=== PATIENT | male | born 1950 | race Caucasian/White ===

== ENCOUNTER 2019-09-15 22:34 | Inpatient (IN) | payer MEDICARE, SELFPAY ==
--- NOTE | ~2019-09-15 | XR_ITS ---
EXAMINATION: XR hip LT min 2V EXAM DATE: 09/17/2019 16:19 INDICATION: Left hip replacement. TECHNIQUE: Frontal and lateral projections of the left hip. Comparison is made to prior examination from 09/16/2019. FINDINGS: Status post total left hip arthroplasty, hardware in expected position. There are arterial calcifications, arteriosclerosis. Some subcutaneous gas. IMPRESSION: Status post left hip replacement. Reviewed, dictated and finalized at location A.
--- NOTE | ~2019-09-15 | XR_ITS ---
EXAMINATION: XR chest 1V portable DATE: 09/16/2019 00:36 INDICATION: Syncope. Smoker. Left femoral fracture post fall TECHNIQUE: frontal view of the chest was obtained. COMPARISON: None FINDINGS: Hyperexpansion of lungs suggestive but not diagnostic of COPD. No focal airspace opacities, pulmonary edema, pleural effusion or pneumothorax. The cardiomediastinal silhouette is normal. There is callus formation surrounding several subacute lower left rib fractures. A few older healed right rib fractu res. There is also calcification along an ununited healing minimally displaced lateral left clavicle fracture. IMPRESSION: 1. Appearance suggestive but not diagnostic of COPD. 2. Subacute appearing healing left clavicle and several left rib fractures. Reviewed, dictated and finalized at location A.
--- NOTE | ~2019-09-15 | CT_ITS ---
EXAMINATION: CT brain wo con DATE: 09/16/2019 00:41 INDICATION: Syncope. Fall. TECHNIQUE: Computed tomography (CT) of the head was performed without intravenous contrast. The mA wa s adjusted according to patient size. Iterative reconstruction technique was employed. The dose-lengt h product was 681.00 mGy-cm. COMPARISON: None FINDINGS: There are scattered areas of low attenuation in the cerebral white matter. There is an old lacunar infarct in left lentiform nucleus. There is no intracranial hemorrhage, acute infarction, or abnormal intracranial mass lesion. The ventricles are normal in size. The orbits are normal. There is mild mucosal thickening in the paranasal sinuses. There is thickening and sclerosis of the encinas of the right maxillary sinus, consistent with chronic sinusitis. The mastoid air cells are normal. IMPRESSION: 1. Moderate nonspecific cerebral white matter disease, which likely represents chronic small vessel i schemic disease. 2. Old lacunar infarct in left lentiform nucleus. Reviewed, dictated and finalized at location B. IMPRESSION: 1. Moderate nonspecific cerebral white matter disease, which likely represents chronic small vessel ischemic disease. 2. Old lacunar infarct in left lentiform nucleus.
--- NOTE | ~2019-09-15 | XR_ITS ---
EXAMINATION: XR femur LT min 2V DATE: 09/16/2019 00:35 INDICATION: Left leg pain post fall TECHNIQUE: Overlapping proximal and distal, AP and lateral views of the left femur were obtained. COMPARISON: None FINDINGS: Basocervical fracture of the proximal left femur with 3 cm proximal migration resulting in varus angu lation. There is also one cortical width posterior displacement. No other fractures identified. Consuelo l alignment with mild osteoarthritis at the left hip. Normal alignment with moderate medial and later al compartment predominant tricompartmental osteoarthritis at the left knee. No left knee joint effus ion. Extensive atherosclerotic calcifications throughout the left iliac and femoral arteries. IMPRESSION: 3 cm proximally migration of a basicervical fracture of the proximal left femur. Reviewed, dictated and finalized at location A. IMPRESSION: 3 cm proximally migration of a basicervical fracture of the proximal left femur .
[2019-09-15 22:37] VITALS: BP 108/70; PULSE 94; RESP 20; TEMP 37.1; O2SAT 97
--- NOTE | 2019-09-15 23:25 | ECG_ITS ---
Measurements Intervals [place] Rate: 91 P: -35 ME: 126 QRS: -16 QRSD: 81 T: 135 QT: 335 QTc: 412 Interpretive Statements SINUS OR ECTOPIC ATRIAL RHYTHM ATRIAL PREMATURE COMPLEX LOW QRS VOLTAGE IN LIMB LEADS BASELINE ARTIFACT- I, II, III, AVR, AVL, AVF BORDERLINE ECG Electronically Signed On 09-16-2019 7:04:57 CDT by Morris Echevarria D.O.
--- NOTE | 2019-09-15 23:26 | ED.WEAKNESS ---
HPI - Weakness General Chief complaint: Weakness Stated complaint: FALL HIP PAIN Time Seen by Provider: 09/15/19 22:47 History of Present Illness HPI Narrative: Patient presents to the ED for weakness and left leg pain. He said he passed out a couple nights ago and hurt his left leg and has not been able to walk on it since. He smells of stool and urine. He says he drinks regularly. His voice is slightly muffled. He denies chest pain belly pain back pain. Complaint: generalized weakness Onset (ago): day(s) Duration: constant Location: generalized Severity scale (1-10): 9 Related Data Allergies Allergy/AdvReac Type Severity Reaction Status Date / Time No Known Allergies Allergy Verified 09/16/19 00:40 Review of Systems Review of Systems: Narrative: CONSTITUTIONAL: Denies fever, chills, or sweats. EYES: Denies visual changes, redness, or discharge. ENT: Denies rhinorrhea, congestion, sore throat, or otalgia. CARDIOVASCULAR: Denies chest pain, palpitations, or edema. RESPIRATORY: Denies cough or dyspnea. GASTROINTESTINAL: Denies abdominal pain, nausea, vomiting, or diarrhea. GENITOURINARY: Denies dysuria or hematuria. SKIN: Denies rash or itching. MUSCULOSKELETAL: Denies back pain, but has left leg and hip pain NEUROLOGIC: Denies headache, numbness, or weakness. All systems reviewed & are unremarkable except as noted in HPI and below PMFSH Past Medical History Medical History Alcoholic Syncope Social History Social History (Updated 09/15/19 @ 23:37 by Ana Rosa Messer MD) Smoking status: Current every day smoker Alcohol intake: current Exam Narrative: Exam Narrative: GENERAL: Foul-smelling disheveled elderly man, laying on his right side.. HEAD: Normocephalic, atraumatic. EYES: PERRLA and EOMI. ENT: Nares clear, no rhinorrhea or epistaxis. Mucous membranes moist. NECK: Supple. CHEST: Clear to auscultation. No respiratory distress. HEART: Regular rate and rhythm. No murmur heard. Normal peripheral pulses. ABDOMEN: Soft, nontender, nondistended, normal active bowel sounds. EXTREMITIES: No edema. Bruises on both arms and legs. SKIN: Warm, dry, no rash. NEURO: No focal deficits. Alert and oriented x3. Slurred speech PSYCH: Poor eye contact. Course Consultations Consultation #1: Call the orthopedic on-call Dr. Larson accepts the consult for the left hip fracture Date: 09/16/19 Time: 01:21 Consultation #2: Call Dr. Burrell for admission for the left hip fracture. Date: 09/16/19 Time: 02:04 Consultation #3: Dr. Burrell accepts the patient. Date: 09/16/19 Time: 03:05 Vital Signs Vital signs: Vital Signs Temperature 98.7 F 09/15/19 22:37 Pulse Rate 94 09/15/19 22:37 Respiratory Rate 20 09/15/19 22:37 Blood Pressure 108/70 09/15/19 22:37 Pulse Oximetry 97 09/15/19 22:37 Temperature 98.7 F 09/15/19 22:37 Pulse Rate 91 09/16/19 02:19 Respiratory Rate 16 09/16/19 02:19 Blood Pressure 123/84 09/16/19 02:19 Pulse Oximetry 100 09/16/19 02:19 MDM - Weakness Medical Records Attestation: I reviewed the patient's medical records. Lab Data Result diagrams: 09/15/19 23:34 09/15/19 23:35 Labs: Lab Results 09/15/19 09/15/19 09/15/19 Range/Units 23:34 23:34 23:35 WBC 14.1 H (4.5-10.0) K/mm3 RBC 4.56 L (4.6-6.20) M/mm3 Hgb 15.8 (14.0-18.0) g/dL Hct 43.3 (42.0-52.0) % MCV 95.0 (80-100) fl MCH 34.6 H (26-34) pg MCHC 36.5 H (32-36) g/dl RDW 13.2 (11.5-14.5) % Plt Count 263 (150-375) k/mm3 MPV 8.1 (7.4-10.4) fl Immature Gran % (Auto) 0.5 (0-0.5) % Neut % (Auto) 81.7 H (45.5-73.1) % Lymph % (Auto) 6.3 L (18.3-44.2) % [place] % (Auto) 11.3 H (2.6-8.5) % Eos % (Auto) 0.1 (0-4.4) % Baso % (Auto) 0.1 L (0.2-1.2) % Lymph # (Auto) 0.89 L (0.9-3.2) K/mm3 [place] # (Auto) 1.6 H (0.1-0.6) K/mm3 Eos # (Au
[2019-09-15 23:41] LABS: Basophils Percent Auto 0.1 % (0.2-1.2); Eosinophils Percent Auto 0.1 % (0-4.4); Hematocrit 43.3 % (42.0-52.0); Hemoglobin 15.8 g/dL (14.0-18.0); Immature Granulocyte Absolute 0.07 K/mm3 (0.00-0.031); Immature Granulocyte Percent A 0.5 % (0-0.5); Lymphocytes Absolute Auto 0.89 K/mm3 (0.9-3.2); Lymphocytes Percent Auto 6.3 % (18.3-44.2); Mean Corpuscular HGB Conc 36.5 g/dl (32-36); Mean Corpuscular Hemoglobin 34.6 pg (26-34); Mean Platelet Volume 8.1 fl (7.4-10.4); Monocytes Absolute Auto 1.6 K/mm3 (0.1-0.6); Monocytes Percent Auto 11.3 % (2.6-8.5); Neutrophils Absolute Auto 11.5 K/mm3 (1.3-6.7); Neutrophils Percent Auto 81.7 % (45.5-73.1); Platelet Count Result 263 k/mm3 (150-375); Red Blood Count 4.56 M/mm3 (4.6-6.20); Red Cell Distribution Width 13.2 % (11.5-14.5); White Blood Count 14.1 K/mm3 (4.5-10.0)
[2019-09-15 23:45] VITALS: BP 115/84; PULSE 78; RESP 20; O2SAT 99
[2019-09-15 23:53] LABS: Alanine Aminotransferase 45 U/L (4-50); Albumin Level 3.9 g/dL (3.5-5.1); Alkaline Phosphatase 86 U/L (38-126); Anion Gap 11 mmol/L (8-16); Aspartate Amino Transferase 85 U/L (17-59); Bilirubin,Total 1.7 mg/dL (0.2-1.3); Blood Urea Nitrogen 41 mg/dL (9-20); Carbon Dioxide 24 mmol/L (22-30); Chloride 90 mmol/L (98-107); Estimated CRCL calculation 42 ml/min; Estimated Glomerular Filt Rate 40; Glucose 116 mg/dL (75-110); Potassium 4.3 mmol/L (3.4-5.0); Sodium 125 mmol/L (137-145)
[2019-09-15 23:56] LABS: Ethanol < 10 mg/dL (<10)
[2019-09-16] VITALS (11 sets, daily range): BP systolic 112–138; BP diastolic 63–90; PULSE 74–91; RESP 16–22; TEMP 36.2–37; O2SAT 92–100; BMI 23.1; BMI 23.0
[2019-09-16 00:24] LABS: Add Urine Microscopic? YES; Appearance Urine Cloudy (Clear); Bacteria Urine Trace /hpf; Bilirubin Urine Negative (Negative); Blood Urine 1+ (Negative); Color Urine Amber (Yellow); Glucose Urine UA Negative (Negative); Hyaline Casts Urine 15-19 /lpf; Ketones Urine Trace mg/dL (Negative); Leukocyte Esterase Ur 2+ LEU/UL (Negative); Mucus Urine Heavy /lpf; Nitrate Urine Positive (Negative); Protein Urine 1+ mg/dL (Negative); RBC Urine 0-2 /hpf (0-2); Specific Grav Ur 1.019 (1.001-1.035); Squamous Epithelial Cell Urine Rare /hpf (Few); WBC Urine 21-30 /hpf
[2019-09-16 00:40] LABS: Amphetamine Screen Urine Negative (Negative); Barbiturate Screen Urine Negative (Negative); Benzodiazepines Screen Urine Negative (Negative); Cannabinoid Screen Urine Negative (Negative); Cocaine Screen Urine Negative (Negative); Methadone Screen Urine Negative (Negative); Opiate Screen Urine Negative (Negative); Phencyclidine Screen Urine Negative (Negative)
[2019-09-16 02:30] LABS: Creatine Kinase 1417 U/L (55-170)
[2019-09-16] MEDS: SODIUM CHLORIDE 0.9% IV 1,000 ML 999 ML IV CONT (02:30)
[2019-09-16] MEDS: SODIUM CHLORIDE 0.9% IV 1,000 ML 125 ML IV CONT ×2 (07:02→19:11)
--- NOTE | 2019-09-16 07:53 | PC.NURSE ---
Spoke with ESTEBAN Pastrana. about diet order. She says to keep pt NPO untill Ortho sees him.
[2019-09-16] MEDS: MORPHINE SULFATE 4 MG/ML INJ IV PUSH ×2 (09:06→20:58)
--- NOTE | 2019-09-16 12:04 | PM.IMHP ---
H&P: HPI History of Present Illness Date/Time: 09/16/19 12:04 Chief complaint: hip fracture and rhabdomylosis Narrative: Date of admission: 09/15/2019 Date of service: 09/16/2019 Carmelo Valdivia is a 69 year old male smoker with a history of hypertension, hyponatremia, and chronic alcohol abuse who presented to the emergency department on 09/15/2019 with complaints of left hip and leg pain. On , 09/12/2019, he was going to the bathroom when he fell onto the bathroom floor and seemed to have injured his leg at that time. He could not stand up, and therefore he crawled to his bed and collapsed on the floor again. He reports drinking approximately 6 beers on night. He believes that he fell on his buttocks. He denies hitting his head or losing consciousness. For the next 2-3 days he crawled back and forth from his bed to his kitchen to take his medications and eat and pulled himself up into a chair. At one point, he was unable to pull himself up into his bed, so he simply laid on the floor and stayed there for an unknown amount of time. His friends called to check on him because they had not seen him in a bit and then sent an ambulance to his house. At this time, he is complaining of left leg pain which is 9/10 in severity. He tells me he has not drank any alcohol in 4 days since his fall. He denies ever having symptoms of alcohol withdrawal. He does not believe that alcohol use is a problem for him. He has had decreased urine output over the past few days but is unsure whether his urine was darker or not. He tells me he has had several falls in the past, but not causing any injury such as this. Review of Systems Review of Systems: Narrative: A 12 point review of systems was reviewed with pertinent positives and negatives as per HPI and below. He denies headache, confusion, sweats, fever, chills, nausea, vomiting, or diarrhea. His last bowel movement was 3 days ago. He denies dysphagia. He endorses a chronic dry smoker's cough. He feels a bit agitated and anxious about being in the hospital but denies depression. He denies weakness, dizziness, or lightheadedness. No weight loss. He has numbness and tingling in both of his feet. [facility] Past Medical History Medical History (Updated 09/16/19 @ 15:34 by Rosario Virgen PA-C) Alcohol abuse Hypertension Hyponatremia Tobacco abuse Family History Family History Mother Heart disease Father Dementia Other Unknown family medical history Social History Social History (Updated 09/16/19 @ 12:23 by Rosario Virgen PA-C) Social History: Mr. Valdivia lives at home alone. He is independent with his ADLs but does not drive because his license has been revoked. He is . He has no children. 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.He designates his sister Shantelle as his surrogate decision maker and he would like to be a full code Smoking packs per day: 1.5 Smoking cigarettes per day: 30.0 Years smoked: 53 Smoking pack-years: 79.50 Smoking status: Current every day smoker Tobacco type: cigarettes Alcohol intake: current Drinks per week: 18 Substance use: current Substance use type: marijuana Last use: 3 weeks ago Living arrangements: alone Occupation/Education: retired Gender identity (if verbalized by the patient): Male Spiritual care concerns: No Meds Home Medications and Allergies Home Medications Medication Instructions Recorded Confirmed Type amlodipine 5 mg PO DAILY 09/16/19 09/16/19 History lisinopril 10 mg PO DAILY 09/16/19 09/16/19 History sodium chloride 1 g PO TID 09/16/19 09/16/19 History Allergies Allergy/AdvReac Type Severity Reaction Status Date / Time No Known Allergies Allergy Verified 09/16/19 00:40 Vital Signs Vital Signs - 24 hr 09/15/19 22:37 09/15/19 23:45 09/16/19 00:00 Temperature 98.7 F Puls
[2019-09-16 13:02] LABS: Basophils Percent Auto 0.1 % (0.2-1.2); Hematocrit 38.3 % (42.0-52.0); Immature Granulocyte Absolute 0.04 K/mm3 (0.00-0.031); Immature Granulocyte Percent A 0.4 % (0-0.5); Lymphocytes Absolute Auto 1.03 K/mm3 (0.9-3.2); Lymphocytes Percent Auto 9.5 % (18.3-44.2); Mean Corpuscular HGB Conc 36.6 g/dl (32-36); Mean Corpuscular Hemoglobin 34.7 pg (26-34); Mean Corpuscular Volume 94.8 fl (80-100); Mean Platelet Volume 8.1 fl (7.4-10.4); Monocytes Absolute Auto 1.3 K/mm3 (0.1-0.6); Monocytes Percent Auto 12.4 % (2.6-8.5); Neutrophils Absolute Auto 8.4 K/mm3 (1.3-6.7); Neutrophils Percent Auto 77.6 % (45.5-73.1); Platelet Count Result 240 k/mm3 (150-375); Red Blood Count 4.04 M/mm3 (4.6-6.20); Red Cell Distribution Width 13.1 % (11.5-14.5); White Blood Count 10.8 K/mm3 (4.5-10.0)
[2019-09-16 13:18] LABS: Alanine Aminotransferase 34 U/L (4-50); Alkaline Phosphatase 68 U/L (38-126); Anion Gap 6 mmol/L (8-16); Aspartate Amino Transferase 58 U/L (17-59); Bilirubin,Total 1.2 mg/dL (0.2-1.3); Blood Urea Nitrogen 29 mg/dL (9-20); Carbon Dioxide 23 mmol/L (22-30); Chloride 98 mmol/L (98-107); Creatine Kinase 838 U/L (55-170); Estimated CRCL calculation 96 ml/min; Estimated Glomerular Filt Rate > 60; Glucose 98 mg/dL (75-110); Potassium 3.7 mmol/L (3.4-5.0); Sodium 127 mmol/L (137-145)
--- NOTE | 2019-09-16 17:43 | PM.CNOR ---
Assessment and Plan Assessment and plan (1) Closed fracture of left hip: Qualifiers: Encounter type: initial encounter Qualified Code(s): S72.002A - Fracture of unspecified part of neck of left femur, initial encounter for closed fracture Code(s): S72.002A - Fracture of unspecified part of neck of left femur, initial encounter for closed fracture Status: Acute Assessment and Plan: Displaced femoral neck fracture. Will benefit from bipolar hemiarthroplasty. Significant wrist due to multiple medical comorbidities and alcohol abuse. Risks, benefits, and alternatives reviewed with the patient. Consents to proceed with bipolar hemiarthroplasty of the left hip. (2) Alcohol abuse: Code(s): F10.10 - Alcohol abuse, uncomplicated Status: Acute History of Present Illness HPI Consult date: 09/16/19 Chief complaint: hip fracture and rhabdomylosis Narrative: Patient complains of acute hip pain. Fell from standing height. Extended. Down before being brought to the emergency room for definitive management. Denies previous hip pain. Fairly comfortable at rest. No numbness, tingling, or other associated symptoms. Severe chronic alcoholism. Review of Systems Review of Systems: Narrative: Denies loss of consciousness. All systems reviewed & are unremarkable except as noted in HPI and below PMFSH Past Medical History Medical History Alcohol abuse Hypertension Hyponatremia Tobacco abuse Family History Family History Mother Heart disease Father Dementia Other Unknown family medical history Social History Social History Social History: Mr. Valdivia lives at home alone. He is independent with his ADLs but does not drive because his license has been revoked. He is . He has no children. 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.He designates his sister Shantelle as his surrogate decision maker and he would like to be a full code Smoking packs per day: 1.5 Smoking cigarettes per day: 30.0 Years smoked: 53 Smoking pack-years: 79.50 Smoking status: Current every day smoker Tobacco type: cigarettes Alcohol intake: current Drinks per week: 18 Substance use: current Substance use type: marijuana Last use: 3 weeks ago Living arrangements: alone Occupation/Education: retired Gender identity (if verbalized by the patient): Male Spiritual care concerns: No Meds Home Medications and Allergies Home Medications Medication Instructions Recorded Confirmed Type amlodipine 5 mg PO DAILY 09/16/19 09/16/19 History lisinopril 10 mg PO DAILY 09/16/19 09/16/19 History sodium chloride 1 g PO TID 09/16/19 09/16/19 History Allergies Allergy/AdvReac Type Severity Reaction Status Date / Time No Known Allergies Allergy Verified 09/16/19 00:40 Vital Signs Vital Signs - 24 hr 09/15/19 22:37 09/15/19 23:45 09/16/19 00:00 Temperature 37.1 C Pulse Rate 94 78 86 Respiratory Rate 20 20 21 H Blood Pressure 108/70 115/84 130/63 Pulse Oximetry 97 99 99 09/16/19 00:41 09/16/19 01:29 09/16/19 02:19 Temperature Pulse Rate 82 74 91 Respiratory Rate 18 22 H 16 Blood Pressure 112/70 115/90 123/84 Pulse Oximetry 98 100 100 09/16/19 03:45 09/16/19 03:55 09/16/19 04:00 Temperature 36.9 C Pulse Rate 74 79 79 Respiratory Rate 20 20 20 Blood Pressure 129/64 119/70 Pulse Oximetry 99 100 100 09/16/19 06:00 09/16/19 14:00 09/16/19 16:00 Temperature 36.2 C L 36.9 C Pulse Rate 90 91 Respiratory Rate 16 20 Blood Pressure 125/76 123/85 123/85 Pulse Oximetry 100 92 Exam Narrative: Exam Narrative: Lower extremity shortened and externally rotated. Const: General: no acute distress Eyes: General: appearance normal, both eyes and all related str
[2019-09-16] MEDS: THIAMINE HCL 100 MG TABLET PO (17:53)
[2019-09-16] MEDS: FOLIC ACID 1 MG TABLET PO (17:53)
[2019-09-16] MEDS: FAMOTIDINE 20 MG/2 ML VIAL IV PUSH (20:44)
[2019-09-17] VITALS (12 sets, daily range): BP systolic 94–181; BP diastolic 48–90; PULSE 60–84; RESP 16–20; TEMP 36.1–37; O2SAT 94–100
[2019-09-17] MEDS: SODIUM CHLORIDE 0.9% IV 1,000 ML 125 ML IV CONT ×2 (01:19→18:49)
[2019-09-17] MEDS: MORPHINE SULFATE 4 MG/ML INJ IV PUSH (05:29)
[2019-09-17 05:59] LABS: Basophils Percent Auto 0.2 % (0.2-1.2); Eosinophils Percent Auto 0.1 % (0-4.4); Hematocrit 37.1 % (42.0-52.0); Hemoglobin 13.4 g/dL (14.0-18.0); Immature Granulocyte Absolute 0.05 K/mm3 (0.00-0.031); Immature Granulocyte Percent A 0.6 % (0-0.5); Lymphocytes Absolute Auto 1.25 K/mm3 (0.9-3.2); Lymphocytes Percent Auto 14.6 % (18.3-44.2); Mean Corpuscular HGB Conc 36.1 g/dl (32-36); Mean Corpuscular Hemoglobin 34.1 pg (26-34); Mean Corpuscular Volume 94.4 fl (80-100); Mean Platelet Volume 7.8 fl (7.4-10.4); Monocytes Absolute Auto 1.2 K/mm3 (0.1-0.6); Monocytes Percent Auto 13.8 % (2.6-8.5); Neutrophils Absolute Auto 6.1 K/mm3 (1.3-6.7); Neutrophils Percent Auto 70.7 % (45.5-73.1); Platelet Count Result 237 k/mm3 (150-375); Red Blood Count 3.93 M/mm3 (4.6-6.20); Red Cell Distribution Width 12.8 % (11.5-14.5); White Blood Count 8.6 K/mm3 (4.5-10.0)
[2019-09-17 06:14] LABS: Alanine Aminotransferase 31 U/L (4-50); Albumin Level 2.9 g/dL (3.5-5.1); Alkaline Phosphatase 69 U/L (38-126); Anion Gap 8 mmol/L (8-16); Aspartate Amino Transferase 44 U/L (17-59); Blood Urea Nitrogen 22 mg/dL (9-20); Calcium 7.9 mg/dL (8.4-10.2); Carbon Dioxide 21 mmol/L (22-30); Chloride 101 mmol/L (98-107); Creatine Kinase 382 U/L (55-170); Estimated CRCL calculation 111 ml/min; Estimated Glomerular Filt Rate > 60; Glucose 88 mg/dL (75-110); Potassium 3.5 mmol/L (3.4-5.0); Sodium 130 mmol/L (137-145)
[2019-09-17 06:41] LABS: Vitamin D 25 Hydroxy 18.5 ng/mL
[2019-09-17 07:17] LABS: Folic Acid 14.6 ng/mL (2.76->20)
[2019-09-17] MEDS: FAMOTIDINE 20 MG/2 ML VIAL IV PUSH ×2 (08:15→20:43)
[2019-09-17] MEDS: SODIUM CHLORIDE 0.9% IV 1,000 ML 75 ML IV CONT ×2 (08:18→10:29)
[2019-09-17] MEDS: THIAMINE HCL 100 MG TABLET PO (08:21)
[2019-09-17] MEDS: FOLIC ACID 1 MG TABLET PO (08:21)
--- NOTE | 2019-09-17 10:01 | WPDHPUPDATE1 ---
History and Physical Update Update Date/Time: 09/17/19 10:01 History and Physical has been reviewed, including an updated exam of the patient. There are NO changes in the patient's condition. Risks, benefits, and alternatives have been discussed and questions answered. Patient agrees to proceed with procedure.
--- NOTE | 2019-09-17 12:05 | PC.NURSE ---
To OR per bed, IV 20 RAC.
--- NOTE | 2019-09-17 12:30 | WPDANESEPPF ---
Anes - Initial Pre Proc Eval Procedure: Operation Date: 09/17/19 14:00 Proposed Procedures p Bipolar Hemiarthroplasty Left Hip - James Larson MD Date/Time: 09/17/19 12:30 Surgeon: Braxton Antony PA-C Pre Op Diagnosis: hip fracture and rhabdomylosis Patient Data Age: 69 Gender: M Height: 6 ft Weight: 77.11 kg Last Vital Signs Temp 36.9 C 09/17/19 06:00 Pulse 73 09/17/19 06:00 Resp 20 09/17/19 06:00 BP 150/70 H 09/17/19 06:00 Pulse Ox 97 09/17/19 06:00 Allergies Allergy/AdvReac Type Severity Reaction Status Date / Time No Known Allergies Allergy Verified 09/16/19 00:40 Home Medications Medication Instructions Recorded Confirmed Type amlodipine 5 mg PO DAILY 09/16/19 09/16/19 History lisinopril 10 mg PO DAILY 09/16/19 09/16/19 History sodium chloride 1 g PO TID 09/16/19 09/16/19 History Laboratory Tests 09/16/19 09/16/19 09/16/19 12:51 12:51 19:04 WBC 10.8 K/mm3 H K/mm3 (4.5-10.0) RBC 4.04 M/mm3 L M/mm3 (4.6-6.20) Hgb 14.0 g/dL g/dL (14.0-18.0) Hct 38.3 % L % (42.0-52.0) MCV 94.8 fl fl (80-100) MCH 34.7 pg H pg (26-34) MCHC 36.6 g/dl H g/dl (32-36) RDW 13.1 % % (11.5-14.5) Plt Count 240 k/mm3 k/mm3 (150-375) MPV 8.1 fl fl (7.4-10.4) Immature Gran % (Auto) 0.4 % % (0-0.5) Neut % (Auto) 77.6 % H % (45.5-73.1) Lymph % (Auto) 9.5 % L % (18.3-44.2) [place] % (Auto) 12.4 % H % (2.6-8.5) Eos % (Auto) 0.0 % % (0-4.4) Baso % (Auto) 0.1 % L % (0.2-1.2) Lymph # (Auto) 1.03 K/mm3 K/mm3 (0.9-3.2) [place] # (Auto) 1.3 K/mm3 H K/mm3 (0.1-0.6) Eos # (Auto) 0.0 K/mm3 K/mm3 (0-0.3) Baso # (Auto) 0.0 K/mm3 K/mm3 (0.0-0.1) Abs Immat Gran (auto) 0.04 K/mm3 H K/mm3 (0.00-0.031) Absolute Neuts (auto) 8.4 K/mm3 H K/mm3 (1.3-6.7) Absolute Nucleated RBC 0.0 K/mm3 K/mm3 (0.0-0.012) Nucleated RBC % 0.0 % % (0.0-0.2) Sodium 127 mmol/L L mmol/L (137-145) Potassium 3.7 mmol/L mmol/L (3.4-5.0) Chloride 98 mmol/L mmol/L (98-107) Carbon Dioxide 23 mmol/L mmol/L (22-30) Anion Gap 6 mmol/L L mmol/L (8-16) BUN 29 mg/dL H D mg/dL (9-20) Creatinine 0.70 mg/dL mg/dL (0.7-1.3) Estim Creat Clear Calc 96 ml/min ml/min Estimated GFR > 60 (59 - ) Glucose 98 mg/dL mg/dL (75-110) Calcium 8.0 mg/dL L mg/dL (8.4-10.2) Total Bilirubin 1.2 mg/dL mg/dL (0.2-1.3) AST 58 U/L U/L (17-59) ALT 34 U/L U/L (4-50) Alkaline Phosphatase 68 U/L U/L (38-126) Total Creatine Kinase 838 U/L H U/L (55-170) Total Protein 6.0 g/dL L g/dL (6.3-8.2) Albumin 3.0 g/dL L g/dL (3.5-5.1) Vitamin B12 Vitamin D 25-Hydroxy Folate Blood Type O Positive Antibody Screen Negative 09/17/19 09/17/19 09/17/19 05:35 05:35 05:36 WBC 8.6 K/mm3 K/mm3 (4.5-10.0) RBC 3.93 M/mm3 L M/mm3 (4.6-6.20) Hgb 13.4 g/dL L g/dL (14.0-18.0) Hct 37.1 % L % (42.0-52.0) MCV 94.4 fl fl (80-100) MCH 34.1 pg H pg (26-34) MCHC 36.1 g/dl H g/dl (32-36) RDW 12.8 % % (11.5-14.5) Plt Count 237 k/mm3 k/mm3 (150-375) MPV 7.8 fl fl (7.4-10.4) Immature Gran % (Auto) 0.6 % H % (0-0.5) Neut % (Auto) 70.7 % % (45.5-73.1) Lymph % (Auto) 14.6 % L % (18.3-44.2) [place] % (Auto) 13.8 % H % (2.6-8.5) Eos % (Auto) 0.1 % % (0-4.4) Baso % (Auto) 0.2 % % (0.2-1.2) Lymph # (Auto) 1.25 K/mm3 K/mm3 (0.9-3.2) [place] # (Auto) 1.2 K/mm3 H K/mm3 (0
[2019-09-17] MEDS: LACTATED RINGERS 1,000 ML 30 ML IV CONT ×2 (12:36→15:48)
[2019-09-17] MEDS: ceFAZolin 2 GM/D5W 50 ML 2 GM/50 ML BAG IVPB (13:20)
--- NOTE | 2019-09-17 15:38 | P.OP_ITS ---
Procedure Note - Detailed Date of procedure: 09/17/19 Pre-op diagnosis: hip fracture and rhabdomylosis Displaced femoral neck fracture. Post-op diagnosis: same Procedure performed: Bipolar hemiarthroplasty. Implants: Bridget Accolade 2 hip stem. Size 7, 56 mm bipolar component, 28+4 mm metal head. Anesthesia: GETA Surgeon: James Larson MD Estimated blood loss (mL): 150 Drains: No Pathology: none sent Complications: None Condition: stable Disposition: PACU Findings: A general anesthetic was administered. The patient was carefully place d in the lateral decubitus position on the peg board positioner. An axillary roll was placed. The hip was prepped and draped in the usual sterile fashion. An anterolateral approach to the hip was performed. The anterior gluteus medius and vastus lateralis was split and retracted anteriorly. The capsule was opened. The labrum was preserved. The femoral neck cut was performed. The femoral head was removed and sized. The acetabular floor was cleared of debris and loose tissue. The femur was sequentially reamed and broached. Trial was assessed for leg length and stability. The real component was impacted into position, trialed again, and the final head and bipolar component were assembled. The hip was reduced after copious irrigation. The capsule was repaired, followed by the abductors to the trochanter. The wound was closed in layers with #2 and #1 vicryl, 2,0, and 2-0 running barbed suture. Adhesive tapes were placed on the skin, followed by a sterile gauze dressing. The patient was extubated and brought to the recovery room.
--- NOTE | 2019-09-17 16:57 | PC.NURSE ---
Returned from OR per bed. Report received from Angel.
--- NOTE | 2019-09-17 17:16 | PM.IMPN ---
Progress Note: A&P Assessment and Plan (1) Closed fracture of left hip: Qualifiers: Encounter type: initial encounter Qualified Code(s): S72.002A - Fracture of unspecified part of neck of left femur, initial encounter for closed fracture Code(s): S72.002A - Fracture of unspecified part of neck of left femur, initial encounter for closed fracture Status: Acute Assessment and Plan: He had a fall on 09/11 and reports he fell on his buttocks. X-ray shows basicervical fracture of the proximal left femur. Dr. Larson consulted and appreciate recommendations. POD0 left bipolar hemiarthroplasty per Dr. Larson. Vitamin D level 18.5; will initiate Vit D3 1000 units daily Post op care, pain management, PT/OT, DVT ppx per Ortho recommendations Monitor (2) Rhabdomyolysis: Qualifiers: Encounter type: initial encounter Rhabdomyolysis type: traumatic Qualified Code(s): T79.6XXA - Traumatic ischemia of muscle, initial encounter Code(s): M62.82 - Rhabdomyolysis Status: Acute Assessment and Plan: Patient had a fall and laid on the ground for an unknown amount of time. He did not lose consciousness or hit his head. Head CT showed no acute abnormalities. CK has improved again today Continue IV fluids. Continue to monitor labs and urine output. (3) Alcohol abuse: Code(s): F10.10 - Alcohol abuse, uncomplicated Status: Acute Assessment and Plan: He reports drinking approximately 8 beers per day. He denies ever having a history of alcohol withdrawal symptoms. His last drink was 4 days ago. He does not believe that alcohol use is a problem for him and he is not interested in reducing his alcohol intake. Initiate CIWA protocol. Continue thiamine and folic acid B12 and folate WNL (4) Hyponatremia: Code(s): E87.1 - Hypo-osmolality and hyponatremia Status: Acute Assessment and Plan: He reports chronic hyponatremia and is on 1 g sodium chloride t.i.d. per PCP. Likely due to heavy beer intake and poor nutritional intake. No prior labs are available for review to establish a baseline. Sodium is 130 today. Continue IV sodium chloride. Monitor sodium levels closely. (5) Renal insufficiency: Code(s): N28.9 - Disorder of kidney and ureter, unspecified Status: Resolved Assessment and Plan: Most likely secondary to rhabdo and is improving. At presentation, creatinine was 1.7 and has appeared to have resolved wtih Cr 0.60 today. Continue IV fluids Hold lisinopril. Plan to resume when clinically appropriate. Continue to monitor renal function closely and avoid nephrotoxic agents. (6) Hypertension: Qualifiers: Hypertension type: essential hypertension Qualified Code(s): I10 - Essential (primary) hypertension Code(s): I10 - Essential (primary) hypertension Status: Acute Assessment and Plan: Blood pressures have been elevated perioperatively this afternoon Continue amlodipine. Hold lisinopril given renal insufficiency. Monitor (7) COPD (chronic obstructive pulmonary disease): Qualifiers: COPD type: unspecified COPD Qualified Code(s): J44.9 - Chronic obstructive pulmonary disease, unspecified Code(s): J44.9 - Chronic obstructive pulmonary disease, unspecified Status: Suspected Assessment and Plan: CXR is consistent with COPD findings. He smokes 1.5 ppd. He complains of chronic dry cough. He is maintaining adequate oxygenation on room air. Continue p.r.n. albuterol He will benefit from outpatient PFT. (8) Tobacco abuse: Code(s): Z72.0 - Tobacco use Status:
[2019-09-17] MEDS: DOCUSATE SODIUM 100 MG CAPSULE PO (18:23)
[2019-09-18] VITALS: BP 101/71; PULSE 70; RESP 16; TEMP 37; O2SAT 99
[2019-09-18] MEDS: SODIUM CHLORIDE 0.9% IV 1,000 ML 125 ML IV CONT (01:04)
[2019-09-18 04:00] VITALS: BP 136/70; PULSE 61; RESP 18; TEMP 36.8; O2SAT 100
[2019-09-18 06:07] LABS: Basophils Percent Auto 0.2 % (0.2-1.2); Eosinophils Percent Auto 0.2 % (0-4.4); Hematocrit 36.8 % (42.0-52.0); Hemoglobin 13.1 g/dL (14.0-18.0); Immature Granulocyte Absolute 0.04 K/mm3 (0.00-0.031); Immature Granulocyte Percent A 0.4 % (0-0.5); Lymphocytes Absolute Auto 1.15 K/mm3 (0.9-3.2); Lymphocytes Percent Auto 10.8 % (18.3-44.2); Mean Corpuscular HGB Conc 35.6 g/dl (32-36); Mean Corpuscular Hemoglobin 34.7 pg (26-34); Mean Corpuscular Volume 97.4 fl (80-100); Mean Platelet Volume 8.2 fl (7.4-10.4); Monocytes Absolute Auto 1.5 K/mm3 (0.1-0.6); Monocytes Percent Auto 13.7 % (2.6-8.5); Neutrophils Absolute Auto 7.9 K/mm3 (1.3-6.7); Neutrophils Percent Auto 74.7 % (45.5-73.1); Platelet Count Result 242 k/mm3 (150-375); Red Blood Count 3.78 M/mm3 (4.6-6.20); White Blood Count 10.6 K/mm3 (4.5-10.0)
[2019-09-18 06:21] LABS: Anion Gap 9 mmol/L (8-16); Blood Urea Nitrogen 12 mg/dL (9-20); Calcium 7.7 mg/dL (8.4-10.2); Carbon Dioxide 26 mmol/L (22-30); Chloride 94 mmol/L (98-107); Estimated CRCL calculation 111 ml/min; Estimated Glomerular Filt Rate > 60; Glucose 92 mg/dL (75-110); Magnesium 1.8 mg/dL (1.6-2.3); Potassium 3.1 mmol/L (3.4-5.0); Sodium 129 mmol/L (137-145)
[2019-09-18 06:30] LABS: Creatine Kinase 389 U/L (55-170)
--- NOTE | 2019-09-18 08:19 | P.PNAN_ITS ---
Anes - Prog Note Post-Op Date/Time: 09/18/19 08:19 Cardiovascular status: normal Respiratory status: normal Airway patency: baseline Mental status: baseline Post-Op hydration status: normal Vital Signs: Last Vital Signs Temp 36.8 C 09/18/19 04:00 Pulse 61 09/18/19 04:00 Resp 18 09/18/19 04:00 BP 136/70 09/18/19 04:00 Pulse Ox 100 09/18/19 04:00 Pain Score (VAS): 0/10. Patient resting in bed at time of assessment, appears comfortable. I/O: Intake & Output 09/17/19 09/18/19 09/18/19 23:59 07:59 15:59 Intake Total 550 1300 Output Total 650 800 Balance -100 500 Laboratory Tests 09/18/19 05:28 09/18/19 05:28 09/18/19 09/18/19 05:28 05:28 WBC 10.6 H RBC 3.78 L Hgb 13.1 L Hct 36.8 L MCV 97.4 MCH 34.7 H MCHC 35.6 RDW 13.0 Plt Count 242 MPV 8.2 Immature Gran % (Auto) 0.4 Neut % (Auto) 74.7 H Lymph % (Auto) 10.8 L [place] % (Auto) 13.7 H Eos % (Auto) 0.2 Baso % (Auto) 0.2 Lymph # (Auto) 1.15 [place] # (Auto) 1.5 H Eos # (Auto) 0.0 Baso # (Auto) 0.0 Abs Immat Gran (auto) 0.04 H Absolute Neuts (auto) 7.9 H Absolute Nucleated RBC 0.0 Nucleated RBC % 0.0 Sodium 129 L Potassium 3.1 L Chloride 94 L Carbon Dioxide 26 Anion Gap 9 BUN 12 D Creatinine 0.60 L Estim Creat Clear Calc 111 Estimated GFR > 60 Glucose 92 Calcium 7.7 L Magnesium 1.8 Total Creatine Kinase 389 H Microbiology 09/16/19 00:01 Urine Catheterized Urine Culture - Final Post-procedural complaints: none Patient Feedback: Patient satisfied with anesthetic care.
[2019-09-18] MEDS: POTASSIUM CHLORIDE 20 MEQ TABLET 40 MEQ PO (08:58)
[2019-09-18] MEDS: THIAMINE HCL 100 MG TABLET PO (08:58)
[2019-09-18] MEDS: FOLIC ACID 1 MG TABLET PO (08:58)
[2019-09-18] MEDS: DOCUSATE SODIUM 100 MG CAPSULE PO ×2 (08:58→16:55)
[2019-09-18] MEDS: CHOLECALCIFEROL 1,000 UNIT TABLET 1000 UNITS PO (08:58)
[2019-09-18] MEDS: ENOXAPARIN 40 MG/0.4 ML SYRINGE SUB-Q (08:58)
[2019-09-18] MEDS: FAMOTIDINE 20 MG/2 ML VIAL IV PUSH ×2 (09:18→20:51)
[2019-09-18 09:59] VITALS: O2SAT 95
[2019-09-18 10:00] VITALS: BP 130/89; PULSE 75; RESP 22; TEMP 36.8; O2SAT 97
[2019-09-18 14:00] VITALS: BP 151/86; PULSE 88; RESP 16; TEMP 37.3; O2SAT 100
--- NOTE | 2019-09-18 16:25 | PM.IMPN ---
Progress Note: A&P Assessment and Plan (1) Closed fracture of left hip: Qualifiers: Encounter type: initial encounter Qualified Code(s): S72.002A - Fracture of unspecified part of neck of left femur, initial encounter for closed fracture Code(s): S72.002A - Fracture of unspecified part of neck of left femur, initial encounter for closed fracture Status: Acute Assessment and Plan: He had a fall on 09/11 and reports he fell on his buttocks. X-ray shows basicervical fracture of the proximal left femur. Dr. Larson consulted and appreciate recommendations. POD1 left bipolar hemiarthroplasty per Dr. Larson. Vitamin D level 18.5; will continue Vit D3 1000 units daily Post op care, pain management, PT/OT, DVT ppx per Ortho recommendations Monitor (2) Rhabdomyolysis: Qualifiers: Encounter type: initial encounter Rhabdomyolysis type: traumatic Qualified Code(s): T79.6XXA - Traumatic ischemia of muscle, initial encounter Code(s): M62.82 - Rhabdomyolysis Status: Acute Assessment and Plan: Patient had a fall and laid on the ground for an unknown amount of time. He did not lose consciousness or hit his head. Head CT showed no acute abnormalities. CK has stable at 389 today Continue IV fluids. Continue to monitor labs and urine output. (3) Alcohol abuse: Code(s): F10.10 - Alcohol abuse, uncomplicated Status: Acute Assessment and Plan: He reports drinking approximately 8 beers per day. He denies ever having a history of alcohol withdrawal symptoms. His last drink was 4 days ago. He does not believe that alcohol use is a problem for him and he is not interested in reducing his alcohol intake. Continue CIWA protocol. Continue thiamine and folic acid B12 and folate WNL (4) Hyponatremia: Code(s): E87.1 - Hypo-osmolality and hyponatremia Status: Acute Assessment and Plan: He reports chronic hyponatremia and is on 1 g sodium chloride t.i.d. per PCP. Likely due to heavy beer intake and poor nutritional intake. No prior labs are available for review to establish a baseline. Sodium is 129 today. Continue IV sodium chloride. Monitor sodium levels closely. (5) Renal insufficiency: Code(s): N28.9 - Disorder of kidney and ureter, unspecified Status: Resolved Assessment and Plan: Most likely secondary to rhabdo and is improving. At presentation, creatinine was 1.7 and has appeared to have resolved with Cr 0.60 today. Continue IV fluids Will resume lisinopril tomorrow Continue to monitor renal function closely (6) Hypertension: Qualifiers: Hypertension type: essential hypertension Qualified Code(s): I10 - Essential (primary) hypertension Code(s): I10 - Essential (primary) hypertension Status: Acute Assessment and Plan: Blood pressures 150s sys this afternoon Continue amlodipine. Resume lisinopril tomorrow Monitor (7) COPD (chronic obstructive pulmonary disease): Qualifiers: COPD type: unspecified COPD Qualified Code(s): J44.9 - Chronic obstructive pulmonary disease, unspecified Code(s): J44.9 - Chronic obstructive pulmonary disease, unspecified Status: Suspected Assessment and Plan: CXR is consistent with COPD findings. He smokes 1.5 ppd. He complains of chronic dry cough. He is maintaining adequate oxygenation on room air. Continue p.r.n. albuterol He will benefit from outpatient PFT. (8) Tobacco abuse: Code(s): Z72.0 - Tobacco use Status: Acute Assessment and Plan: He smokes 1.5 packs per day. Nicotine patch will be available a
[2019-09-18] MEDS: SODIUM CHLORIDE 0.9% IV 1,000 ML 100 ML IV CONT (16:44)
--- NOTE | 2019-09-18 17:37 | PM.PNORT ---
Progress Note: A&P Assessment and Plan (1) History of hemiarthroplasty of left hip: Code(s): Z96.642 - Presence of left artificial hip joint Status: Acute Assessment and Plan: Postoperative day 1 status post bipolar hemiarthroplasty. Stable from an orthopedic standpoint. Appreciate medical care. (2) Alcohol abuse: Code(s): F10.10 - Alcohol abuse, uncomplicated Status: Acute Subjective Subjective Date/Time Seen: 09/18/19 17:37 Interval history: Postoperative day 1 status post bipolar hemiarthroplasty. Patient is confused about whether he has performed physical therapy. Appears comfortable. Exam Narrative: Exam Narrative: Wound is healing well. No drainage, or hematoma. Anterior tibialis and EHL 5/5. No edema. Calves non tender. Extrem: General: capillary refill normal, no calf tenderness bilaterally and no pedal edema Objective Data Vital Signs Vital Signs: Vital Signs - 24 hr 09/17/19 17:45 09/17/19 18:45 09/17/19 20:00 Temperature 36.7 C 36.6 C 37.0 C Pulse Rate 74 77 84 Respiratory Rate 16 16 20 Blood Pressure 146/82 H 152/70 H 153/84 H Pulse Oximetry 100 99 99 09/18/19 00:00 09/18/19 04:00 09/18/19 09:59 Temperature 37.0 C 36.8 C Pulse Rate 70 61 Respiratory Rate 16 18 Blood Pressure 101/71 136/70 Pulse Oximetry 99 100 95 09/18/19 10:00 09/18/19 14:00 Temperature 36.8 C 37.3 C Pulse Rate 75 88 Respiratory Rate 22 H 16 Blood Pressure 130/89 151/86 H Pulse Oximetry 97 100 Intake/Output Intake/Output: Intake & Output 09/15/19 09/16/19 09/17/19 09/18/19 23:59 23:59 23:59 23:59 Intake Total 1640 4000 1400 Output Total 147 599 6456 800 Balance -250 1340 2850 600 Meds/Results Medications: Active Medications Generic Name Dose Route Start Last Admin Trade Name Freq PRN Reason Stop Dose Admin Amlodipine Besylate 5 mg 09/19/19 09:00 Norvasc PO DAILY DEIDRA Docusate Sodium 100 mg 09/17/19 17:00 09/18/19 16:55 Colace Capsule PO 100 mg BID DEIDRA Administration Enoxaparin Sodium 40 mg 09/17/19 09:00 09/18/19 08:58 Lovenox SUB-Q 40 mg DAILY [facility] Administration Famotidine 20 mg 09/16/19 21:00 09/18/19 09:18 Pepcid Iv IV PUSH 20 mg Q12HR DEIDRA Administration Fentanyl Citrate 25 mcg 09/17/19 12:30 Sublimaze IV PUSH Q2M PRN Pain Folic Acid 1 mg 09/16/19 15:25 09/18/19 08:58 Folic Acid PO 1 mg DAILY [facility] Administration Sodium Chloride 1,000 mls @ 100 mls/hr 09/18/19 16:35 09/18/19 16:44 Normal Saline Iv IV CONT 100 mls/hr .Q10H [facility] Administration Lisinopril 10 mg 09/19/19 09:00 Prinivil PO DAILY [facility] Magnesium Hydroxide 30 ml 09/17/19 16:48 Milk Of Magnesia PO BID PRN Constipation Naloxone HCl 0.1 mg 09/17/19 16:48 Narcan IV PUSH Q2M PRN Opiate Reversal Ondansetron HCl 4 mg 09/17/19 18:39 Zofran Inj IV PUSH Q4H PRN Nausea And Vomiting Oxycodone HCl 5 mg 09/17/19 16:48 09/18/19 16:55 Roxicodone Ir Tablet PO 5 mg Q4H PRN Administration Pain Rated 7-10 Thiamine HCl 100 mg 09/16/19 15:25 09/18/19 08:58 Vitamin B-1 PO 100 mg QAM [facility] Administration Vitamin D 1,000 unit 09/18/19 09:00 09/18/19 08:58 Vitamin D PO 1,000 unit QAM [facility] Administration Radiology Results: ITS Impressions Femur X-Ray 09/16/19 07:37 IMPRESSION: 3 cm proximally migration of a basicervical fracture of the proximal left femur. Chest X-Ray 09/16/19 07:40 IMPRESSION: 1. Appearance suggestive but not diagnostic of COPD. 2. Subacute appearing healing left clavicle and several left rib fractures. Head CT 09/16/19 07:55 IMPRESSION: 1. Moderate nonspecific cerebral white matter disease, which likely represents chronic small vessel ischemic disease. 2. Old lacunar infarct in left lentiform nucleus. Hip X-Ray 09/17/19 16:58 IMPRESSION: Status post left hip replacement.
[2019-09-18 22:00] VITALS: BP 145/79; PULSE 86; RESP 20; TEMP 36.8; O2SAT 97
[2019-09-19] MEDS: SODIUM CHLORIDE 0.9% IV 1,000 ML 100 ML IV CONT ×3 (03:14→20:50)
[2019-09-19 05:00] VITALS: BP 150/81; PULSE 82; RESP 16; TEMP 36.7; O2SAT 97
[2019-09-19 06:09] LABS: Basophils Percent Auto 0.2 % (0.2-1.2); Eosinophils Percent Auto 0.3 % (0-4.4); Hematocrit 34.1 % (42.0-52.0); Hemoglobin 12.6 g/dL (14.0-18.0); Immature Granulocyte Absolute 0.05 K/mm3 (0.00-0.031); Immature Granulocyte Percent A 0.5 % (0-0.5); Lymphocytes Absolute Auto 0.93 K/mm3 (0.9-3.2); Lymphocytes Percent Auto 8.5 % (18.3-44.2); Mean Corpuscular Hemoglobin 34.7 pg (26-34); Mean Corpuscular Volume 93.9 fl (80-100); Mean Platelet Volume 7.9 fl (7.4-10.4); Monocytes Absolute Auto 1.5 K/mm3 (0.1-0.6); Monocytes Percent Auto 13.6 % (2.6-8.5); Neutrophils Absolute Auto 8.5 K/mm3 (1.3-6.7); Neutrophils Percent Auto 76.9 % (45.5-73.1); Platelet Count Result 211 k/mm3 (150-375); Red Blood Count 3.63 M/mm3 (4.6-6.20); Red Cell Distribution Width 12.5 % (11.5-14.5)
[2019-09-19 06:21] LABS: Anion Gap 7 mmol/L (8-16); Blood Urea Nitrogen 8 mg/dL (9-20); Calcium 7.4 mg/dL (8.4-10.2); Carbon Dioxide 25 mmol/L (22-30); Chloride 94 mmol/L (98-107); Creatine Kinase 173 U/L (55-170); Estimated CRCL calculation 130 ml/min; Estimated Glomerular Filt Rate > 60; Glucose 93 mg/dL (75-110); Magnesium 1.7 mg/dL (1.6-2.3); Potassium 3.3 mmol/L (3.4-5.0); Sodium 126 mmol/L (137-145)
[2019-09-19 08:00] VITALS: BP 139/79; PULSE 91; RESP 20; TEMP 37.4; O2SAT 98
[2019-09-19] MEDS: CHOLECALCIFEROL 1,000 UNIT TABLET 1000 UNITS PO (08:11)
[2019-09-19] MEDS: amLODIPine BESYLATE 5 MG TABLET PO (08:11)
[2019-09-19] MEDS: DOCUSATE SODIUM 100 MG CAPSULE PO ×2 (08:11→17:16)
[2019-09-19] MEDS: FOLIC ACID 1 MG TABLET PO (08:12)
[2019-09-19] MEDS: lisinopriL 10 MG TABLET PO (08:12)
[2019-09-19] MEDS: THIAMINE HCL 100 MG TABLET PO (08:12)
[2019-09-19] MEDS: FAMOTIDINE 20 MG/2 ML VIAL IV PUSH ×2 (08:13→20:50)
[2019-09-19] MEDS: ENOXAPARIN 40 MG/0.4 ML SYRINGE SUB-Q (08:13)
[2019-09-19] MEDS: POTASSIUM CHLORIDE 20 MEQ TABLET 40 MEQ PO (08:13)
[2019-09-19 08:54] VITALS: O2SAT 96
--- NOTE | 2019-09-19 14:55 | PM.IMPN ---
Progress Note: A&P Assessment and Plan (1) Closed fracture of left hip: Qualifiers: Encounter type: initial encounter Qualified Code(s): S72.002A - Fracture of unspecified part of neck of left femur, initial encounter for closed fracture Code(s): S72.002A - Fracture of unspecified part of neck of left femur, initial encounter for closed fracture Status: Acute Assessment and Plan: He had a fall on 09/11 and reports he fell on his buttocks. X-ray shows basicervical fracture of the proximal left femur. Dr. Larson consulted and appreciate recommendations. POD2 left bipolar hemiarthroplasty per Dr. Larson. Vitamin D level 18.5; will continue Vit D3 1000 units daily Post op care, pain management, PT/OT, DVT ppx per Ortho recommendations Monitor Likely discharge to [facility] tomorrow if still clinically improving (2) Rhabdomyolysis: Qualifiers: Encounter type: initial encounter Rhabdomyolysis type: traumatic Qualified Code(s): T79.6XXA - Traumatic ischemia of muscle, initial encounter Code(s): M62.82 - Rhabdomyolysis Status: Acute Assessment and Plan: Patient had a fall and laid on the ground for an unknown amount of time. He did not lose consciousness or hit his head. Head CT showed no acute abnormalities. CK down to 173 today Continue IV fluids tonight; likely d/c tomorrow. Continue to monitor labs and urine output. (3) Alcohol abuse: Code(s): F10.10 - Alcohol abuse, uncomplicated Status: Acute Assessment and Plan: He reports drinking approximately 8 beers per day. He denies ever having a history of alcohol withdrawal symptoms. His last drink was 4 days ago. He does not believe that alcohol use is a problem for him and he is not interested in reducing his alcohol intake. Continue CIWA protocol. Continue thiamine and folic acid B12 and folate WNL (4) Hyponatremia: Code(s): E87.1 - Hypo-osmolality and hyponatremia Status: Acute Assessment and Plan: He reports chronic hyponatremia and is on 1 g sodium chloride t.i.d. per PCP. Likely due to heavy beer intake and poor nutritional intake. No prior labs are available for review to establish a baseline. Sodium is 126 today. Continue IV sodium chloride. Will resume PO NaCl tabs Monitor sodium levels closely. (5) Renal insufficiency: Code(s): N28.9 - Disorder of kidney and ureter, unspecified Status: Resolved Assessment and Plan: Most likely secondary to rhabdo and is improving. At presentation, creatinine was 1.7 and has appeared to have resolved with Cr 0.50 today. Continue IV fluids Continue lisinopril Continue to monitor renal function closely (6) Hypertension: Qualifiers: Hypertension type: essential hypertension Qualified Code(s): I10 - Essential (primary) hypertension Code(s): I10 - Essential (primary) hypertension Status: Acute Assessment and Plan: Blood pressures 150s sys today Continue amlodipine, lisinopril Monitor (7) COPD (chronic obstructive pulmonary disease): Qualifiers: COPD type: unspecified COPD Qualified Code(s): J44.9 - Chronic obstructive pulmonary disease, unspecified Code(s): J44.9 - Chronic obstructive pulmonary disease, unspecified Status: Suspected Assessment and Plan: CXR is consistent with COPD findings. He smokes 1.5 ppd. He complains of chronic dry cough. He is maintaining adequate oxygenation on room air. Continue p.r.n. albuterol He will benefit from outpatient PFT. (8) Tobacco abuse: Code(s): Z72.0 - Tobacco use Status: Acute Assessment a
[2019-09-19 16:00] VITALS: BP 116/50; PULSE 91; RESP 18; TEMP 37.4; O2SAT 96
--- NOTE | 2019-09-19 16:48 | PM.PNORT ---
Progress Note: A&P Assessment and Plan (1) History of hemiarthroplasty of left hip: Code(s): Z96.642 - Presence of left artificial hip joint Status: Acute Assessment and Plan: Progressing well. Good candidate for [facility] transfer when ready. Subjective Subjective Date/Time Seen: 09/19/19 11:45 Post Op day: 2 Interval history: Mobilizing well. Pain well controlled. Exam Narrative: Exam Narrative: Afebrile. Vitals stable. Wound healing well. No drainage or hematoma. No edema. More alert today. Objective Data Vital Signs Vital Signs: Vital Signs - 24 hr 09/18/19 22:00 09/19/19 05:00 09/19/19 08:54 Temperature 36.8 C 36.7 C Pulse Rate 86 82 Respiratory Rate 20 16 Blood Pressure 145/79 H 150/81 H Pulse Oximetry 97 97 96 Intake/Output Intake/Output: Intake & Output 09/16/19 09/17/19 09/18/19 09/19/19 23:59 23:59 23:59 23:59 Intake Total 1640 4000 1520 2200 Output Total 300 1150 800 900 Balance 1340 2850 720 1300 Meds/Results Medications: Active Medications Generic Name Dose Route Start Last Admin Trade Name Freq PRN Reason Stop Dose Admin Amlodipine Besylate 5 mg 09/19/19 09:00 09/19/19 08:11 Norvasc PO 5 mg DAILY DEIDRA Administration Docusate Sodium 100 mg 09/17/19 17:00 09/19/19 08:11 Colace Capsule PO 100 mg BID DEIDRA Administration Enoxaparin Sodium 40 mg 09/17/19 09:00 09/19/19 08:13 Lovenox SUB-Q 40 mg DAILY DEIDRA Administration Famotidine 20 mg 09/16/19 21:00 09/19/19 08:13 Pepcid Iv IV PUSH 20 mg Q12HR DEIDRA Administration Fentanyl Citrate 25 mcg 09/17/19 12:30 Sublimaze IV PUSH Q2M PRN Pain Folic Acid 1 mg 09/16/19 15:25 09/19/19 08:12 Folic Acid PO 1 mg DAILY [facility] Administration Sodium Chloride 1,000 mls @ 100 mls/hr 09/18/19 16:35 09/19/19 12:34 Normal Saline Iv IV CONT 100 mls/hr .Q10H [facility] Administration Lisinopril 10 mg 09/19/19 09:00 09/19/19 08:12 Prinivil PO 10 mg DAILY [facility] Administration Magnesium Hydroxide 30 ml 09/17/19 16:48 Milk Of Magnesia PO BID PRN Constipation Naloxone HCl 0.1 mg 09/17/19 16:48 Narcan IV PUSH Q2M PRN Opiate Reversal Ondansetron HCl 4 mg 09/17/19 18:39 Zofran Inj IV PUSH Q4H PRN Nausea And Vomiting Oxycodone HCl 5 mg 09/17/19 16:48 09/19/19 05:17 Roxicodone Ir Tablet PO 5 mg Q4H PRN Administration Pain Rated 7-10 Sodium Chloride 1 gm 09/19/19 17:00 Sodium Chloride PO TID [facility] Thiamine HCl 100 mg 09/16/19 15:25 09/19/19 08:12 Vitamin B-1 PO 100 mg QAM [facility] Administration Vitamin D 1,000 unit 09/18/19 09:00 09/19/19 08:11 Vitamin D PO 1,000 unit QAM [facility] Administration Radiology Results: ITS Impressions Femur X-Ray 09/16/19 07:37 IMPRESSION: 3 cm proximally migration of a basicervical fracture of the proximal left femur. Chest X-Ray 09/16/19 07:40 IMPRESSION: 1. Appearance suggestive but not diagnostic of COPD. 2. Subacute appearing healing left clavicle and several left rib fractures. Head CT 09/16/19 07:55 IMPRESSION: 1. Moderate nonspecific cerebral white matter disease, which likely represents chronic small vessel ischemic disease. 2. Old lacunar infarct in left lentiform nucleus. Hip X-Ray 09/17/19 16:58 IMPRESSION: Status post left hip replacement. Labs Labs: Laboratory Results - last 24 hr 09/19/19 09/19/19 05:56 05:56 WBC 11.0 H RBC 3.63 L Hgb 12.6 L Hct 34.1 L MCV 93.9 MCH 34.7 H MCHC 37.0 H RDW 12.5 Plt Count 211 MPV 7.9 Immature Gran % (Auto) 0.5 Neut % (Auto) 76.9 H Lymph % (Auto) 8.5 L [place] % (Auto) 13.6 H Eos % (Auto) 0.3 Baso % (Auto) 0.2 Lymph # (Auto) 0.93 [place] # (Auto) 1.5 H Eos # (Auto) 0.0 Baso # (Auto) 0.0 Abs Immat Gran (auto) 0.05 H Absolute Neuts (auto) 8.5 H Absolute Nucleated RBC 0.0 Nucleated RBC % 0.0
[2019-09-19] MEDS: SODIUM CHLORIDE 1 GM TABLET PO (17:16)
[2019-09-19 20:00] VITALS: PULSE 92; RESP 18; O2SAT 98
[2019-09-19 22:00] VITALS: BP 132/67; PULSE 92; RESP 18; TEMP 36.8; O2SAT 98
[2019-09-20 05:57] LABS: Basophils Percent Auto 0.2 % (0.2-1.2); Eosinophils Percent Auto 0.4 % (0-4.4); Hematocrit 33.2 % (42.0-52.0); Hemoglobin 11.9 g/dL (14.0-18.0); Immature Granulocyte Absolute 0.07 K/mm3 (0.00-0.031); Immature Granulocyte Percent A 0.7 % (0-0.5); Lymphocytes Absolute Auto 0.99 K/mm3 (0.9-3.2); Lymphocytes Percent Auto 9.9 % (18.3-44.2); Mean Corpuscular HGB Conc 35.8 g/dl (32-36); Mean Corpuscular Hemoglobin 34.3 pg (26-34); Mean Corpuscular Volume 95.7 fl (80-100); Mean Platelet Volume 8.3 fl (7.4-10.4); Monocytes Absolute Auto 1.3 K/mm3 (0.1-0.6); Neutrophils Absolute Auto 7.6 K/mm3 (1.3-6.7); Neutrophils Percent Auto 75.8 % (45.5-73.1); Platelet Count Result 247 k/mm3 (150-375); Red Blood Count 3.47 M/mm3 (4.6-6.20); Red Cell Distribution Width 12.4 % (11.5-14.5)
[2019-09-20 06:00] VITALS: BP 164/85; PULSE 83; RESP 18; TEMP 36.9; O2SAT 100
[2019-09-20 06:06] LABS: Anion Gap 5 mmol/L (8-16); Blood Urea Nitrogen 7 mg/dL (9-20); Calcium 7.3 mg/dL (8.4-10.2); Carbon Dioxide 27 mmol/L (22-30); Chloride 94 mmol/L (98-107); Creatine Kinase 106 U/L (55-170); Estimated CRCL calculation 130 ml/min; Estimated Glomerular Filt Rate > 60; Glucose 110 mg/dL (75-110); Magnesium 1.7 mg/dL (1.6-2.3); Potassium 3.3 mmol/L (3.4-5.0); Sodium 126 mmol/L (137-145)
[2019-09-20] MEDS: amLODIPine BESYLATE 5 MG TABLET PO (07:45)
[2019-09-20] MEDS: THIAMINE HCL 100 MG TABLET PO (07:46)
[2019-09-20] MEDS: lisinopriL 10 MG TABLET PO (07:46)
[2019-09-20] MEDS: SODIUM CHLORIDE 1 GM TABLET PO ×2 (07:46→12:25)
[2019-09-20] MEDS: POTASSIUM CHLORIDE 20 MEQ TABLET 60 MEQ PO (07:46)
[2019-09-20] MEDS: FOLIC ACID 1 MG TABLET PO (07:46)
[2019-09-20] MEDS: DOCUSATE SODIUM 100 MG CAPSULE PO (07:46)
[2019-09-20] MEDS: ENOXAPARIN 40 MG/0.4 ML SYRINGE SUB-Q (07:47)
[2019-09-20] MEDS: FAMOTIDINE 20 MG/2 ML VIAL IV PUSH (07:47)
[2019-09-20 09:26] VITALS: BP 116/66; PULSE 95; RESP 18; TEMP 36.9; O2SAT 97
[2019-09-20] MEDS: MAGNESIUM SULF 1 GM/D5W 100 ML 1 GM/100 ML BAG IVPB (09:35)
[2019-09-20] MEDS: CHOLECALCIFEROL 1,000 UNIT TABLET 1000 UNITS PO (09:35)
[2019-09-20 12:00] VITALS: BP 142/78; PULSE 76; RESP 18; TEMP 36.8; O2SAT 100
--- NOTE | 2019-09-20 12:02 | PM.DS ---
DS: Admitting Diagnosis Admitting Diagnosis Admitting Diagnosis: hip fracture and rhabdomylosis DS: Discharge Diagnosis Discharge Diagnosis (1) Closed fracture of left hip: Qualifiers: Encounter type: initial encounter Qualified Code(s): S72.002A - Fracture of unspecified part of neck of left femur, initial encounter for closed fracture Code(s): S72.002A - Fracture of unspecified part of neck of left femur, initial encounter for closed fracture Status: Acute Assessment and Plan: He had a fall on 09/11 and reports he fell on his buttocks. X-ray shows basicervical fracture of the proximal left femur. Dr. Larson consulted and appreciate recommendations. POD3 left bipolar hemiarthroplasty per Dr. Larson. Vitamin D level 18.5; will continue Vit D3 1000 units daily at discharge Post op care, pain management, PT/OT, DVT ppx per Ortho recommendations discharge to [facility] today (2) Rhabdomyolysis: Qualifiers: Encounter type: initial encounter Rhabdomyolysis type: traumatic Qualified Code(s): T79.6XXA - Traumatic ischemia of muscle, initial encounter Code(s): M62.82 - Rhabdomyolysis Status: Acute Assessment and Plan: Patient had a fall and laid on the ground for an unknown amount of time. He did not lose consciousness or hit his head. Head CT showed no acute abnormalities. CK WNL today D/c fluids F/u with PCP (3) Alcohol abuse: Code(s): F10.10 - Alcohol abuse, uncomplicated Status: Acute Assessment and Plan: He reports drinking approximately 8 beers per day. He denies ever having a history of alcohol withdrawal symptoms. His last drink was over a week ago. He does not believe that alcohol use is a problem for him and he is not interested in reducing his alcohol intake. CIWA during stay; withdrawal unlikely at this point as it has been several days since last drink Thiamine and folic acid during stay B12 and folate WNL (4) Hyponatremia: Code(s): E87.1 - Hypo-osmolality and hyponatremia Status: Acute Assessment and Plan: He reports chronic hyponatremia and is on 1 g sodium chloride t.i.d. per PCP. Likely due to heavy beer intake and poor nutritional intake. No prior labs are available for review to establish a baseline. Sodium is 126 today; stable D/c IVF Will continue PO NaCl tabs Monitor sodium levels F/u with PCP (5) Renal insufficiency: Code(s): N28.9 - Disorder of kidney and ureter, unspecified Status: Resolved Assessment and Plan: Most likely secondary to rhabdo and is improving. At presentation, creatinine was 1.7 and has appeared to have resolved with Cr 0.50 today. D/c IVF Continue lisinopril Continue to monitor renal function after discharge (6) Hypertension: Qualifiers: Hypertension type: essential hypertension Qualified Code(s): I10 - Essential (primary) hypertension Code(s): I10 - Essential (primary) hypertension Status: Acute Assessment and Plan: Blood pressures 110s sys this morning Continue amlodipine, lisinopril Monitor (7) COPD (chronic obstructive pulmonary disease): Qualifiers: COPD type: unspecified COPD Qualified Code(s): J44.9 - Chronic obstructive pulmonary disease, unspecified Code(s): J44.9 - Chronic obstructive pulmonary disease, unspecified Status: Suspected Assessment and Plan: CXR is consistent with COPD findings. He smokes 1.5 ppd. He complains of chronic dry cough. No change in his respiratory status. He is maintaining adequate oxygenation on room air. Continue p.r.n. albuterol He will benefit from outpatient PFT.
== END 2019-09-20 14:00 | DRG 956 ==
LOC: ANHED 09-16 01:08 → ANH3MEDSUR 09-16 03:32
PROVIDERS: Orthopaedic Surgery; Physician Assistant; Admitting Provider Internal Medicine; Emergency Provider Emergency Medicine; PCP Internal Medicine; Visit Provider Physician Assistant
PROC: 0SRS01A Replacement of Left Hip Joint, Femoral Surface with Metal Synthetic Substitute, Uncemented, Open Approach (ICD-10-PCS; CPT 27125; principal; 2019-09-17 14:00)
DX: S72.092A Other fracture of head and neck of left femur, initial encounter for closed fracture (principal); T79.6XXA Traumatic ischemia of muscle, initial encounter; E87.1 Hypo-osmolality and hyponatremia; W18.39XA Other fall on same level, initial encounter; I10 Essential (primary) hypertension; F10.10 Alcohol abuse, uncomplicated; N28.9 Disorder of kidney and ureter, unspecified; J44.9 Chronic obstructive pulmonary disease, unspecified; F17.210 Nicotine dependence, cigarettes, uncomplicated
CPT/HCPCS: 36415; 51701; 70450; 71045; 73502; 73552; 80048; 80053; 80307; 81001; 82306; 82550; 82607; 82746; 83735; 85025; 86850; 86900; 86901; 87086; 93005; 96361; 96365; 96367; 97110; 97116; 97161; 97165; 97530; 97535; 99285; A9270; C1776; J0171; J0330; J0690; J0696; J1100; J1170; J1650; J1885; J2250; J2270; J2405; J2704; J2795; J3010; J3411; J3475; J7030; J7120; J7121

== ENCOUNTER 2019-09-20 14:10 | IRF | payer MEDICARE, SELFPAY ==
[2019-09-20 14:10] VITALS: BP 129/70; PULSE 86; RESP 16; TEMP 36.8; O2SAT 99; BMI 24.2
--- NOTE | 2019-09-20 16:02 | PC.NURSE ---
This patient, Carmelo Valdivia, was admitted to [facility] Room 219-02. Patient/family oriented to hospital policies and general routines including ID bracelet, bed and alarms, visiting hours, pain management, procedures, bathroom and other care routines, personal items, smoking policy, room service/diet, and visiting hours. Valuables list has been completed. Information on how to activate the Rapid Response Team has been discussed. Patient/Family are encouraged to report perceived risks to care and to ask questions if they do not understand what they are told or what they should do.
[2019-09-20 18:02] VITALS: PULSE 86; RESP 16; O2SAT 99
--- NOTE | 2019-09-20 20:26 | PC.NURSE ---
At 19:10 pt left AMA- Dr. Murphy notified and also Hospitalist Tabatha Troncoso/Dr. Diaz notified of consult for hyponatremia (Hospitalist were seeing on 3 Med/Surg. They were also notified regarding pt going AMA.
--- NOTE | 2019-10-15 12:17 | WPDNEURCNPN ---
Consult date: 09/20/19 Time Seen: 19:10 HPI: Carmelo Valdivia is a 69 year old male,not seen ,left before [facility] Past Medical History Medical History (Updated 09/17/19 @ 17:50 by Braxton Antony PA-C) Alcohol abuse Hypertension Hyponatremia Tobacco abuse Surgical History Surgical History (Updated 09/18/19 @ 17:38 by James Larson MD) History of hemiarthroplasty of left hip Social History Social History Social History: Mr. Valdivia lives at home alone. He is independent with his ADLs but does not drive because his license has been revoked. He is . He has no children. 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.He designates his sister Shantelle as his surrogate decision maker and he would like to be a full code Smoking packs per day: 1.5 Smoking cigarettes per day: 30.0 Years smoked: 53 Smoking pack-years: 79.50 Smoking status: Current every day smoker Tobacco type: cigarettes Alcohol intake: current Drinks per week: 6 Substance use: former Substance use type: former substance user and marijuana Last use: unknown Gender identity (if verbalized by the patient): Male Spiritual care concerns: No Meds Home Medications and Allergies Home Medications Medication Instructions Recorded Confirmed Type amlodipine 5 mg PO DAILY 09/16/19 09/20/19 History lisinopril 10 mg PO DAILY 09/16/19 09/20/19 History sodium chloride 1 g PO TID 09/16/19 09/20/19 History cholecalciferol (vitamin D3) 1,000 unit PO QAM #30 tablet 09/20/19 09/20/19 Rx [Vitamin D3] enoxaparin [Lovenox] 40 mg SUBCUT DAILY #4 ml 09/20/19 09/20/19 Rx oxycodone-acetaminophen 1 - 2 tablet PO Q4-6H PRN #30 09/20/19 09/20/19 Rx tablet MDD 6 tablets Allergies Allergy/AdvReac Type Severity Reaction Status Date / Time No Known Allergies Allergy Verified 09/16/19 00:40
== END 2019-09-20 19:10 | disposition left against medical advice (07) | DRG 536 ==
PROVIDERS: Admitting Provider Psychiatry & Neurology Neurology; PCP Internal Medicine; Visit Provider Psychiatry & Neurology Neurology
DX: S72.002A Fracture of unspecified part of neck of left femur, initial encounter for closed fracture (principal); Z53.21 Procedure and treatment not carried out due to patient leaving prior to being seen by health care provider